=== PATIENT | female | born 1985 | race Caucasian/White ===

== ENCOUNTER → 2018-03-01 | Outpatient (CLI) | payer BC ==
--- NOTE | 2018-03-01 14:45 | KCIC ---
MR of the left tibia and fibula HISTORY: Fibular fracture, fell 3 weeks ago, pain. TECHNIQUE: Routine multiple planar sequences are obtained, covering most of the tibial diaphysis through the ankle region. FINDINGS: Oblique mildly displaced posttraumatic fracture through the distal fibular shaft, similar alignment as radiographs of 03/01/2018. Fluid/hemorrhage within the muscle and soft tissue surrounding the fracture. Fracture is mildly comminuted. Subchondral marrow edema/contusion at the posterior malleolus of the distal tibia. There appears to be a nondisplaced intra-articular fracture of the posterior malleolus, involving about the posterior 5 mm of the articular surface. No fractures are identified through the tibial shaft. IMPRESSION: 1. Mildly displaced posttraumatic fracture of the distal fibula, with surrounding soft tissue/intramuscular hemorrhage . 2. Nondisplaced intra-articular fracture involving the posterior margin of the tibial plafond at the posterior malleolus. Electronically signed by: Wai Rivero MD (03/01/2018 2:41 PM) [facility]
== END | disposition home or self-care (01) ==
LOC: KCIC MRI 11:49
PROVIDERS: ATTEND Physician Assistant Medical
DX: S82.492D Other fracture of shaft of left fibula, subsequent encounter for closed fracture with routine healing (principal); S82.55XD Nondisplaced fracture of medial malleolus of left tibia, subsequent encounter for closed fracture with routine healing; X58.XXXD Exposure to other specified factors, subsequent encounter
CPT/HCPCS: 73718